=== PATIENT | female | born 1940 | race Caucasian/White ===

== ENCOUNTER 2022-05-02 07:41 | Day surgery (SDC) | payer MEDICARE, MEDICAID ==
[~2022-05-02] VITALS: Ht 170.2 cm; Wt 63.5 kg
[~2022-05-02 07:41] MED LIST: AMBIEN10 MG PO; BENZONATATE200 MG PO; CIPROFLOXACN500 MG PO; COZAAR25 MG PO; COZAAR50 MG PO; DEXILANT30 MG PO; DOXYCYCL HYC100 MG PO; FLORASTOR250 M1 PO; HYDROCO/APAP1 T10 PO; HYDROCO/APAP1 TA9 PO; IMITREX50 MG; LEVOTHYROXIN175 MC1 PO; LORTAB 5; LYRICA50 MG PO; MEDDOSEPAK PO; METOPROL TAR25 MG PO; MOBIC7.5 M1 PO; MUCINEX600 MG PO; MYRBETRIQ25 MG; NEXIUM40 M1 PO; NYSTATIN100000 M1 PO; PENNSAID 2% TOP; PEPCID20 MG PO; PREDNISONE20 MG PO; QUDEXY XR25 MG; SINGULAIR10 MG PO; SYNTHROID150 MCG; VENTOLIN HFA; VOLTAREN1 %; ZITHROMAX500 MG PO; ZOLPIDEM10 M1
[2022-05-02 11:41] VITALS: BP 161/98
== END 2022-05-02 10:25 | disposition home or self-care (01) ==
LOC: ORM 07:41
PROVIDERS: ATTEND Physical Medicine & Rehabilitation
DX: M54.16 Radiculopathy, lumbar region (principal)
CPT/HCPCS: J1100; Q9967

== ENCOUNTER 2023-10-21 20:13 | Observation (INO) | payer MEDICARE ==
[~2023-10-21] VITALS: Ht 162.6 cm; Wt 60.2 kg
[2023-10-21] VITALS (11 sets, daily range): BP systolic 148–178; BP diastolic 81–100
[2023-10-21] MEDS ORDERED: FAMOTIDINE 10MG/ML 2ML SDV IV ONE (20:45)
[2023-10-21] MEDS ORDERED: methylPREDNISolone Sod Succ 40 MG/ML SDV IV ONE (20:45)
[2023-10-21] MEDS ORDERED: DiphenhydrAMINE HCL 50 MG/ML SDV IV ONE (20:45)
[2023-10-21 20:56] LABS: BASO% 0.6 % (0-3); EOS% 2.1 % (0-8); HEMOGLOBIN 12.4 g/dl (12.0-16.0); IMMATURE GRANULOCYTES 0.4 % (0.0-5.0); LYMPH% 37.7 % (15-41); MEAN CELL VOLUME 94.2 fL CALC (80.0-100.0); MEAN CORPUSCULAR HGB CONC 31.8 g/dL CAL (32.0-36.0); MONO% 9.4 % (2-13); NEUT# 2.59 thou/uL (2.00-7.15); NEUT% 49.8 % (42-76); RED BLOOD COUNT 4.14 mill/uL (4.20-5.60); RED CELL DISTRI WIDTH 13.1 % (11.5-15.5)
[2023-10-21 21:04] LABS: ALKALINE PHOSPHATASE 63 u/l (38-126); ANION GAP 10 (6-22 (CALC)); BILIRUBIN, TOTAL 0.4 mg/dL (0.02-1.3); BUN 23 mg/dL (8-23); BUN/CREATININE RATIO 19 (12-20 (CALC)); CALCULATED LDLCHOLESTEROL 155 mg/dL (62-129 (CALC)); CARBON DIOXIDE 29 mmol/l (22-30); CHLORIDE 106 mmol/l (95-108); CHOLESTEROL HDL RATIO 3.7 (<4.4 (CALC)); CREATININE 1.2 mg/dL (0.5-1.0); ESTIMATED GFR 45 ML/MIN (>=90 (CALC)); HDL CHOLESTEROL 72 mg/dL (39.0-59.0); POTASSIUM 4.4 mmol/l (3.5-5.1); SGOT/AST 38 u/l (9-36); SODIUM 141 mmol/l (137-146); TOTAL CHOLESTEROL 271 mg/dl (0-199); TOTAL PROTEIN 7.9 g/dL (6.3-8.2); TOTAL TRIGLYCERIDES 218 mg/dl (0-149); VLDL CHOLESTROL 44 mg/dl (0-48 (CALC))
[2023-10-21 21:07] LABS: ALBUMIN 4.7 g/dL (3.2-5.0)
[2023-10-21 21:08] LABS: INTERNATIONAL NORMALIZED RATIO 1.1 RATIO (0.7-1.3)
[2023-10-21 21:10] LABS: PROTHROMBIN TIME 10.4 SECONDS (9.0-12.5)
[2023-10-21 22:12] LABS: URINE BILIRUBIN - DIPSTICK Negative (NEGATIVE); URINE BLOOD DIPSTICK Negative (NEGATIVE); URINE GLUCOSE - DIPSTICK Negative (NEGATIVE); URINE KETONE Negative (NEGATIVE); URINE LEUK ESTERASE Negative (NEGATIVE); URINE NITRITE - DIPSTICK Negative (Negative); URINE PH 8.5 (4.5-8.0); URINE PROTEIN - DIPSTICK Negative (NEG-TRACE); URINE SPECIFIC GRAVITY 1.015; URINE UROBILINOGEN - DIPSTICK 0.2 E.U./dL (0.2)
[2023-10-21 22:13] LABS: URINE COLOR Yellow
[2023-10-21] MEDS ORDERED: ACETAMINOPHEN 325 MG/TAB PO PRN (22:55)
[2023-10-21] MEDS ORDERED: SODIUM CHLORIDE 0.9% 1,000 ML IV PRN (22:55)
[2023-10-21] MEDS ORDERED: MAGNESIUM HYDROXIDE 30 ML UDC PO PRN (22:55)
[2023-10-21] MEDS ORDERED: CLARIFY DOSE PO PRN (23:10)
[2023-10-22] VITALS (11 sets, daily range): BP systolic 124–191; BP diastolic 71–100
[2023-10-22] MEDS ORDERED: LOSARTAN POTASS25 MG PO (00:08)
[2023-10-22] MEDS ORDERED: BREO ELLIPTA 101 INH (00:09)
[2023-10-22] MEDS ORDERED: LOSARTAN Potassium 50 MG/TAB PO SCH (00:19)
[2023-10-22] MEDS ORDERED: DEXILANT60 MG PO (03:08)
[2023-10-22] MEDS ORDERED: LOSARTAN POTASS50 MG PO (03:09)
[2023-10-22] MEDS ORDERED: MYRBETRIQ50 MG PO (03:10)
[2023-10-22] MEDS ORDERED: ASPIRIN EC 81 MG/TAB PO SCH (09:00)
[2023-10-22] MEDS ORDERED: amLODIPine BESYLATE 5 MG/TAB PO SCH (09:00)
[2023-10-22] MEDS ORDERED: TOPIRAMATE 25 MG TAB PO SCH (10:00)
[2023-10-22] MEDS ORDERED: ATORVASTATIN CA40 MG PO (13:36)
[2023-10-22] MEDS ORDERED: AMLODIPINE BESYL5 MG PO (13:39)
[2023-10-22] MEDS ORDERED: ADLT ASA LOW81 MG PO (13:40)
[2023-10-22] MEDS ORDERED: ATORVASTATIN CALCIUM 40 MG/TAB PO SCH (21:00)
[2023-10-22] MEDS ORDERED: ENOXAPARIN SODIUM 40 MG/0.4 ML SYR SC SCH (21:00)
== END 2023-10-22 15:12 | disposition home or self-care (01) ==
LOC: ED 20:13 → ED-I 22:30 → ED 22:55 → MS2 22:56
PROVIDERS: Emergency Medicine; ADMIT Internal Medicine; ATTEND Internal Medicine
DX: G43.109 Migraine with aura, not intractable, without status migrainosus (principal); I10 Essential (primary) hypertension; J44.9 Chronic obstructive pulmonary disease, unspecified; E03.9 Hypothyroidism, unspecified; E78.5 Hyperlipidemia, unspecified; I65.21 Occlusion and stenosis of right carotid artery; Z91.013 Allergy to seafood; Z99.81 Dependence on supplemental oxygen; J96.10 Chronic respiratory failure, unspecified whether with hypoxia or hypercapnia
CPT/HCPCS: Q9967